=== PATIENT | male | born 2005 | race Caucasian/White ===

== ENCOUNTER 2023-03-29 13:10 | Outpatient (CLI) | payer OTHER | END 2023-03-29 13:18 | disposition home or self-care (01) | LOC: RAD 13:10 | PROVIDERS: ATTEND General Practice | DX: S62.327A Displaced fracture of shaft of fifth metacarpal bone, left hand, initial encounter for closed fracture (principal); S62.327S Displaced fracture of shaft of fifth metacarpal bone, left hand, sequela ==